=== PATIENT | female | born 1985 ===

== ENCOUNTER 2016-07-14 09:24 | Emergency (ER) | payer MEDICAID ==
[2016-07-14] MEDS ORDERED: Amoxicillin-Clav 875-125 mg Tab PO STA (09:53)
--- NOTE | 2016-07-14 09:55 | C.PDOC ---
History Of Present Illness 31 yr old female presents to the ER with complaints of nasal congestion and frontal headache, intermittently for the past 2 days. Patient also reports of sore throat and a dry cough. Patient denies fever, chills, vision changes, chest pain, SOB, nausea, vomiting,abdominal pain, diarrhea, weakness or numbness. Time Seen by Provider: 07/14/16 09:46 Chief Complaint (Nursing): Cough, Cold, Congestion History Per: Patient History/Exam Limitations: no limitations Onset/Duration Of Symptoms: Intermittent Episodes (2 days) Past Medical History Reviewed: Historical Data, Nursing Documentation, Vital Signs Vital Signs: Last Vital Signs Temp 98.5 F 07/14/16 11:15 Pulse 87 07/14/16 11:15 Resp 20 07/14/16 11:15 BP 100/69 07/14/16 11:15 Pulse Ox 98 07/14/16 11:15 Family History: States: No Known Family Hx - Social History Hx Tobacco Use: Yes (2 cigarettes per day) Hx Alcohol Use: No Hx Substance Use: No - Immunization History Hx Tetanus Toxoid Vaccination: No Hx Influenza Vaccination: No Hx Pneumococcal Vaccination: No Review Of Systems Except As Marked, All Systems Reviewed And Found Negative. Constitutional: Negative for: Fever, Chills Eyes: Negative for: Vision Change ENT: Positive for: Nose Congestion, Throat Pain (Sore throat ) Cardiovascular: Negative for: Chest Pain Respiratory: Positive for: Cough (Dry). Negative for: Shortness of Breath Gastrointestinal: Negative for: Nausea, Vomiting, Abdominal Pain, Diarrhea Neurological: Positive for: Headache (Frontal ). Negative for: Weakness, Numbness Physical Exam - Physical Exam Appears: Well, Non-toxic, No Acute Distress Skin: Normal Color, Warm, Dry, No Rash Eye(s): bilateral: Normal Inspection Ear(s): Bilateral: Normal Nose: Discharge (B/L nasal congestion with scant clear rhinorhea.), Other (mild tenderness overlying maxillar sinuses B/L. No edema, no erythema.) Oral Mucosa: Moist, No Drooling Tongue: Normal Appearing Lips: Normal Appearing Throat: Erythema (B/L), No Exudate, No Drooling Neck: Normal, Normal ROM, Supple Cardiovascular: Rhythm Regular Respiratory: Normal Breath Sounds, No Stridor, No Wheezing Gastrointestinal/Abdominal: Normal Exam, Soft, No Tenderness Back: Normal Inspection, No CVA Tenderness Extremity: Normal ROM, No Pedal Edema, No Deformity Neurological/Psych: Oriented x3, Normal Speech ED Course And Treatment O2 Sat by Pulse Oximetry: 97 Pulse Ox Interpretation: Normal Progress Note: On re-evaluation, pt is afebrile, hemodynamiclay stable. Tolerate Po well in ED. Ambulatory in ED, not in any apparent distress. PulseOx 97% RA. ENT: (+) exam c/w acute pharyngitis. uvula midline, no eedma. neck: (-) meningeal sign,. Lungs: CTA B/L, BS equal B/L. Abd: benign, (-) guarding, (-) rebound, (-) RLQ tenderness. Back: (-) CVA tenderness. Neuorlogicaly intact. Pt advised on course of ds. ref. to F/u with PMD in 2-3 days for re-eval. return if any new changes. Medical Decision Making Medical Decision Making: PLAN: * POC * Amoxicillin PO * Benadryl PO * Prednisone PO Disposition Counseled Patient/Family Regarding: Diagnosis, Need For Followup, Rx Given - Disposition Referrals: [facility] [Outside] Disposition: HOME/ ROUTINE Disposition Time: 10:53 Condition: STABLE Prescriptions: Amoxicillin/Clavulanate [Augmentin 875 MG-125 MG] 1 tab PO BID #14 tab Loratadine [Claritin] 10 mg PO DAILY #20 tab Prednisone [Deltasone] 20 mg PO DAILY #3 tablet Benzonatate [Tessalon Perle] 100 mg PO TID #14 capsule Instructions: Pharyngitis (ED), Allergies (ED) Forms: School Excuse, Work Excuse - Clinical Impression Clinical Impression: Pharyngitis, Allergy - 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 - Scribe Statement The provider has reviewed the documentation as recorded by the Scribe Ghislaine Hazel All medical record entries made by the Scribe were at my direction and personally dictated by me. I have reviewed the chart and agree that the record accurately reflects my personal performance of the history, physical exam, medical decision making, and the department course for this patient. I have also personally directed, reviewed, and agree with the discharge instructions and disposition.
[2016-07-14] MEDS ORDERED: Amoxicillin-Clav 875-125 mg Tab PO ONE (10:06)
[2016-07-14 11:22] VITALS: BP 100/69; PULSE 87; RESP 20; TEMP 98.5
[2016-07-14 13:26] VITALS: O2SAT 97
== END 2016-07-14 11:20 | disposition home or self-care (01) ==
LOC: C.ER 09:24
DX: J02.9 Acute pharyngitis, unspecified (principal); J30.89 Other allergic rhinitis; Z72.0 Tobacco use

== ENCOUNTER 2016-07-25 11:20 | Emergency (ER) | payer MEDICAID ==
--- NOTE | 2016-07-25 13:00 | C.PDOC ---
History Of Present Illness 31 yr old female presents to the ER for evaluation of a non productive cough and sore throat for 1 day. Patient reports of sick contact with mom who has similar symptoms. Patient states she had some prescription cough tablets but doesn't remember the name. Patient states she took the tablet today in the morning on a empty stomach and vomited "7 times". Patient also reports of subjective fever yesterday but none today. Patient denies chest pain, SOB, nausea, abdominal pain, diarrhea, constipation, headache, weakness or numbness. Time Seen by Provider: 07/25/16 11:58 Chief Complaint (Nursing): GI Problem History Per: Patient History/Exam Limitations: None Onset/Duration Of Symptoms: Days (1) Current Symptoms Are (Timing): Still Present Past Medical History Reviewed: Historical Data, Nursing Documentation, Vital Signs Vital Signs: Last Vital Signs Temp 98.2 F 07/25/16 13:16 Pulse 62 07/25/16 13:16 Resp 18 07/25/16 13:16 BP 100/67 07/25/16 13:16 Pulse Ox 96 07/25/16 14:16 Family History: States: No Known Family Hx - Social History Hx Tobacco Use: Yes (2 cigarettes per day) Hx Alcohol Use: No Hx Substance Use: No - Immunization History Hx Tetanus Toxoid Vaccination: No Hx Influenza Vaccination: No Hx Pneumococcal Vaccination: No Review Of Systems Except As Marked, All Systems Reviewed And Found Negative. Constitutional: Positive for: Fever (Subjective but non today ) Cardiovascular: Negative for: Chest Pain Respiratory: Negative for: Shortness of Breath Gastrointestinal: Positive for: Vomiting. Negative for: Nausea, Abdominal Pain , Diarrhea, Constipation Neurological: Negative for: Weakness, Numbness, Headache Physical Exam - Physical Exam Appears: Well, Non-toxic, No Acute Distress Skin: Warm, Dry, Rash (Mild rash to the face. Scattered erythematous papules. ) Head: Atraumatic, Normacephalic Eye(s): bilateral: Normal Inspection, PERRL, EOMI Oral Mucosa: Moist Neck: Normal, Normal ROM, Supple Chest: Symmetrical, No Tenderness Cardiovascular: Rhythm Regular, No Murmur Respiratory: Normal Breath Sounds, No Rales, No Rhonchi, No Stridor, No Wheezing Gastrointestinal/Abdominal: Normal Exam, Bowel Sounds, Soft, No Tenderness Back: Normal Inspection, No CVA Tenderness Extremity: Normal ROM, No Swelling Neurological/Psych: Oriented x3, Normal Speech, Normal Cognition ED Course And Treatment O2 Sat by Pulse Oximetry: 96 Pulse Ox Interpretation: Normal Progress Note: Patient was treated with Zofran PO for vomiting. On reevalution, patient appeares comfortable, denies nausea. Patient is dischagred home and instructed to follow up with PMD in 1-2 days for further evaluation. Reassessment Condition: Improved Medical Decision Making Medical Decision Making: PLAN: * Zofran PO Disposition Counseled Patient/Family Regarding: Studies Performed, Diagnosis, Need For Followup, Rx Given - Disposition Referrals: Non [facility] Provider, [Non-Staff] - Disposition: HOME/ ROUTINE Disposition Time: 13:11 Condition: STABLE Additional Instructions: FOLLOW UP WITH PMD IN 1-2 DAYS FOR RE-EVALUATION. GATORADE AND WATER HYDRATION. AVOID MILK/DAIRY AND GREASY PRODUCTS. IF SYMPTOMS GET WORSE OR ANY NEW CONCERNING SYMPTOMS DEVELOP RETURN TO ED. 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 - Scribe Statement The provider has reviewed the documentation as recorded by the Scribe Ghislaine Hazel All medical record entries made by the Scribe were at my direction and personally dictated by me. I have reviewed the chart and agree that the record accurately reflects my personal performance of the history, physical exam, medical decision making, and the department course for this patient. I have also personally directed, reviewed, and agree with the discharge instructions and disposition.
[2016-07-25 13:17] VITALS: BP 100/67; PULSE 62; RESP 18; TEMP 98.2
[2016-07-25 14:13] VITALS: O2SAT 96
== END 2016-07-25 13:18 | disposition home or self-care (01) ==
LOC: C.ER 11:20
DX: B34.9 Viral infection, unspecified (principal)

== ENCOUNTER 2016-07-28 11:11 | Emergency (ER) | payer MEDICAID ==
[2016-07-28 11:39] VITALS: BP 92/62; PULSE 60; RESP 20; TEMP 98.2; O2SAT 99
--- NOTE | 2016-07-28 12:52 | C.PDOC ---
History Of Present Illness 31 y/o female presents to ED with complaints of cough, cold, and congestion for 4 days. Patient was evaluated in this ER on 07/25/09 (3 days ago) for similar complaints. She reports throat and chest pain from persistent coughing. Patient notes that vomiting has since resolved. Denies fever, chills, nausea, abdominal pain, diarrhea, urinary symptoms, headache, or other complaints at this time. Time Seen by Provider: 07/28/16 12:25 Chief Complaint (Nursing): Cough, Cold, Congestion History Per: Patient History/Exam Limitations: no limitations Onset/Duration Of Symptoms: Days Current Symptoms Are (Timing): Still Present Sick Contacts (Context): None Associated Symptoms: Sore Throat, Cough, Nasal Congestion. denies: Fever, Sputum, Vomiting, Diarrhea Ear Symptoms: Bilateral: None Recent travel outside of the [place]: No Past Medical History Reviewed: Historical Data, Nursing Documentation, Vital Signs Vital Signs: Last Vital Signs Temp 98.2 F 07/28/16 11:36 Pulse 60 07/28/16 11:36 Resp 20 07/28/16 11:36 BP 92/62 L 07/28/16 11:36 Pulse Ox 99 07/28/16 12:53 - Medical History PMH: No Chronic Diseases Family History: States: Unknown Family Hx - Social History Hx Tobacco Use: Yes (2 cigarettes per day) Hx Alcohol Use: No Hx Substance Use: No - Immunization History Hx Tetanus Toxoid Vaccination: No Hx Influenza Vaccination: No Hx Pneumococcal Vaccination: No Review Of Systems Except As Marked, All Systems Reviewed And Found Negative. Constitutional: Negative for: Fever, Chills ENT: Positive for: Throat Pain Cardiovascular: Negative for: Chest Pain Respiratory: Positive for: Cough. Negative for: Shortness of Breath, Wheezing Gastrointestinal: Negative for: Nausea, Vomiting, Abdominal Pain Skin: Negative for: Rash Neurological: Negative for: Headache, Dizziness Physical Exam - Physical Exam Appears: Non-toxic, No Acute Distress Skin: Normal Color, Warm, Dry Head: Atraumatic, Normacephalic Eye(s): bilateral: Normal Inspection, PERRL, EOMI Ear(s): Bilateral: Normal Nose: Normal Oral Mucosa: Moist Throat: Normal, No Erythema, No Exudate, No Drooling Chest: Symmetrical Cardiovascular: Rhythm Regular, No Murmur Respiratory: Normal Breath Sounds, No Accessory Muscle Use, No Rales, No Rhonchi , No Wheezing, Other (actively coughing ) Gastrointestinal/Abdominal: Soft, No Tenderness Back: Normal Inspection Extremity: Normal ROM, Capillary Refill (< 2 sec. ) Neurological/Psych: Oriented x3, Normal Speech, Normal Cognition ED Course And Treatment O2 Sat by Pulse Oximetry: 99 (RA) Pulse Ox Interpretation: Normal Progress Note: Treated with Claritin, Motrin, and Prednisone. On reassessment, patient is resting comfortably, and is in no acute distress. Patient instructed to follow up with clinic/PMD within 1-2 days. Disposition - Disposition Referrals: [facility] at [facility] [Outside] Disposition: HOME/ ROUTINE Disposition Time: 13:19 Condition: GOOD Additional Instructions: Return if worsened. 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 - Scribe Statement The provider has reviewed the documentation as recorded by the Ethan Alicea Provider Scribe Attestation: All medical record entries made by the Tyleribkaycee were at my direction and personally dictated by me. I have reviewed the chart and agree that the record accurately reflects my personal performance of the history, physical exam, medical decision making, and the department course for this patient. I have also personally directed, reviewed, and agree with the discharge instructions and disposition.
== END 2016-07-28 13:32 | disposition home or self-care (01) ==
LOC: C.ER 11:11
DX: J40 Bronchitis, not specified as acute or chronic (principal)

== ENCOUNTER 2016-07-30 10:56 | Emergency (ER) | payer MEDICAID ==
[2016-07-30 11:13] VITALS: O2SAT 99
[2016-07-30] MEDS ORDERED: Sodium Chloride 0.9% 1,000 ML IV ONE (11:30)
--- NOTE | 2016-07-30 11:30 | C.PDOC ---
History Of Present Illness 31 yr old female with PMHx of Psych not compliant with medications, states she forgets, presents to the ER for evaluation of a headache for 1 day and vomiting 3x today. Prior records were reviewed which shows patient has been seen multiple times for flu like symptoms in past 1 month. Patient denies fever, chills, vision changes, chest pain, SOB, nausea, abdominal pain, diarrhea, weakness or numbness. Time Seen by Provider: 07/30/16 11:20 Chief Complaint (Nursing): Headache History Per: Patient History/Exam Limitations: no limitations Onset/Duration Of Symptoms: Days (1) Preceeding Symptoms: None Associated Symptoms: denies: Photophobia, Blurred Vision Recent travel outside of the [place]: No Past Medical History Reviewed: Historical Data, Nursing Documentation, Vital Signs Vital Signs: Last Vital Signs Temp 98.1 F 07/30/16 11:10 Pulse 74 07/30/16 11:10 Resp 18 07/30/16 11:10 BP 92/60 L 07/30/16 11:10 Pulse Ox 99 07/30/16 13:12 Family History: States: No Known Family Hx - Social History Hx Tobacco Use: Yes (2 cigarettes per day) Hx Alcohol Use: No Hx Substance Use: No - Immunization History Hx Tetanus Toxoid Vaccination: No Hx Influenza Vaccination: No Hx Pneumococcal Vaccination: No Review Of Systems Except As Marked, All Systems Reviewed And Found Negative. Constitutional: Negative for: Fever, Chills Eyes: Negative for: Vision Change Cardiovascular: Negative for: Chest Pain Respiratory: Negative for: Shortness of Breath Gastrointestinal: Positive for: Vomiting. Negative for: Nausea, Abdominal Pain , Diarrhea Neurological: Positive for: Headache. Negative for: Weakness, Numbness Physical Exam - Physical Exam Appears: Well, Non-toxic, No Acute Distress Skin: Warm, Dry, No Rash Head: Atraumatic, Normacephalic Eye(s): bilateral: Normal Inspection, PERRL, EOMI Oral Mucosa: Moist Throat: Normal, No Erythema, No Exudate, No Drooling Neck: Normal, Normal ROM, No Paracervical Tenderness, Supple Chest: Symmetrical, No Tenderness Cardiovascular: Rhythm Regular, No Murmur Respiratory: Normal Breath Sounds, No Rales, No Rhonchi, No Wheezing Gastrointestinal/Abdominal: Normal Exam, Soft, No Tenderness, No Guarding, No Rebound Extremity: Normal ROM, No Swelling Neurological/Psych: Oriented x3, Normal Speech, Normal Motor ED Course And Treatment O2 Sat by Pulse Oximetry: 99 Pulse Ox Interpretation: Normal Progress Note: Treated with IVF NSS and reglan Reassessment Condition: Improved Medical Decision Making Medical Decision Making: PLAN: * Reglan IV * Sodium Chloride IV Disposition Counseled Patient/Family Regarding: Diagnosis, Need For Followup, Rx Given - Disposition Referrals: [facility] [Outside] [facility] [Outside] Disposition: HOME/ ROUTINE Disposition Time: 13:15 Condition: IMPROVED Additional Instructions: follow up with PMD for further evaluation Prescriptions: Naproxen [Naprosyn] 1 tab PO BID PRN #25 tab PRN Reason: Pain Instructions: General Headache (ED) Forms: Work Excuse - POA Present On Arrival: None - Clinical Impression Clinical Impression: Headache - 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 - Scribe Statement The provider has reviewed the documentation as recorded by the Scribe Ghislaine Hazel All medical record entries made by the Scribe were at my direction and personally dictated by me. I have reviewed the chart and agree that the record accurately reflects my personal performance of the history, physical exam, medical decision making, and the department course for this patient. I have also personally directed, reviewed, and agree with the discharge instructions and disposition.
[2016-07-30 13:21] VITALS: BP 91/60; PULSE 65; RESP 17; TEMP 97.2
== END 2016-07-30 13:43 | disposition home or self-care (01) ==
LOC: C.ER 10:56
DX: R51 Headache (principal)
CPT/HCPCS: 96361; 96374; 99285; J2765; J7040

== ENCOUNTER 2016-11-13 13:54 | Emergency (ER) | payer MEDICAID ==
[2016-11-13 14:07] VITALS: BP 107/62; PULSE 78; RESP 16; TEMP 98.1; O2SAT 100
--- NOTE | 2016-11-13 14:42 | C.PDOC ---
History Of Present Illness 31 y/o female presents to ED requesting test. LMP 1 month ago. Pt denies any pain, vaginal bleeding, vomiting or any other complaints. REQUESTING PREG TEST. LMP 1 MO. NO PAIN. EXAM NEG Time Seen by Provider: 11/13/16 14:26 Chief Complaint (Nursing): Medical Clearance History Per: Patient History/Exam Limitations: no limitations Severity: None Recent travel outside of the [place]: No Past Medical History Reviewed: Historical Data, Nursing Documentation, Vital Signs Vital Signs: Last Vital Signs Temp 98.1 F 11/13/16 14:01 Pulse 78 11/13/16 14:01 Resp 16 11/13/16 14:01 BP 107/62 11/13/16 14:01 Pulse Ox 100 11/13/16 14:43 Family History: States: Unknown Family Hx - Social History Hx Tobacco Use: Yes (2 cigarettes per day) Hx Alcohol Use: No Hx Substance Use: No - Immunization History Hx Tetanus Toxoid Vaccination: No Hx Influenza Vaccination: No Hx Pneumococcal Vaccination: No Review Of Systems Constitutional: Negative for: Fever Gastrointestinal: Negative for: Vomiting, Abdominal Pain Genitourinary: Negative for: Vaginal Bleeding Physical Exam - Physical Exam Appears: Non-toxic, No Acute Distress Skin: Warm, Dry, No Rash Head: Atraumatic, Normacephalic Chest: Symmetrical Cardiovascular: Rhythm Regular Respiratory: Normal Breath Sounds, No Rales, No Rhonchi, No Wheezing Gastrointestinal/Abdominal: Normal Exam, Soft, No Tenderness Extremity: Bilateral: Atraumatic Neurological/Psych: Oriented x3, Normal Speech, Normal Cognition ED Course And Treatment O2 Sat by Pulse Oximetry: 100 (room air) Pulse Ox Interpretation: Normal Disposition Counseled Patient/Family Regarding: Diagnosis, Need For Followup - Disposition Referrals: [facility] [Outside] [facility] [Outside] Disposition: HOME/ ROUTINE Disposition Time: 14:43 Condition: GOOD Additional Instructions: YOUR TEST IS NEGATIVE. FOLLOW UP WITH OBGYN Forms: [facility] ([place]), General Discharge Instructions - Clinical Impression Clinical Impression: Medical assessment - Scribe Statement The provider has reviewed the documentation as recorded by the Tyleribkaycee He Provider Attestation: All medical record entries made by the Scribe were at my direction and personally dictated by me. I have reviewed the chart and agree that the record accurately reflects my personal performance of the history, physical exam, medical decision making, and the department course for this patient. I have also personally directed, reviewed, and agree with the discharge instructions and disposition.
== END 2016-11-13 14:48 | disposition home or self-care (01) ==
LOC: C.ER 13:54
DX: Z00.8 Encounter for other general examination (principal)

== ENCOUNTER 2017-01-01 15:21 | Emergency (ER) | payer MEDICAID ==
[2017-01-01 15:48] VITALS: RESP 18
[2017-01-01] MEDS ORDERED: Sodium Chloride 0.9% 1,000 ML IV ONE (17:36)
[2017-01-01] MEDS ORDERED: Iohexol 240 (50 ml) PO STA (17:55)
[2017-01-01] MEDS ORDERED: Iohexol 240 (50 ml) ONE (18:13)
[2017-01-01 18:48] LABS: RBC URINE 9 /hpf (0-3); URINE BACTERIA OCC (<OCC); URINE BILIRUBIN NEGATIVE (NEGATIVE); URINE COLOR Yellow (YELLOW); URINE GLUCOSE (UA) NORMAL (Normal); URINE KETONE NEGATIVE (NEGATIVE); URINE LEUKOCYTE ESTERASE 3+ Leu/uL (Negative); URINE PROTEIN 2+ mg/dL (NEGATIVE); URINE UROBILINOGEN NORMAL mg/dL (0.2-1.0); WBC URINE 30 /hpf (0-5)
[2017-01-01 18:50] LABS: CHLORIDE 103 mmol/L (98-107); SODIUM 137 mmol/L (132-148)
[2017-01-01 18:52] LABS: GFR AFRICAN-AMERICAN > 60
[2017-01-01 18:53] LABS: ALB/GLOB RATIO 1.5 (1.0-2.1); ALKALINE PHOSPHATASE 87 U/L (38-126); ALT/SGPT 19 U/L (9-52); AST/SGOT 34 U/L (14-36); BLOOD UREA NITROGEN 7 mg/dL (7-17); CALCIUM 9.3 mg/dl (8.6-10.4); CARBON DIOXIDE 23 mmol/L (22-30); GLUCOSE,RANDOM 85 mg/dL (65-105); POTASSIUM 4.8 mmol/L (3.6-5.2); TOTAL PROTEIN 8.3 g/dL (6.3-8.3)
[2017-01-01 18:56] LABS: URINE BLOOD TRACE (NEGATIVE)
[2017-01-01 19:19] LABS: BASO % 0.3 % (0.0-2.0); HEMATOCRIT 38.6 % (34.0-47.0); LYMPH # 0.8 K/uL (1.0-4.3); LYMPH % 5.4 % (20.0-40.0); MEAN CELL VOLUME 87.5 fL (81.0-99.0); MEAN CORPUSCULAR HEMOGLOBIN 29.1 pg (27.0-31.0); MEAN CORPUSCULAR HGB CONC 33.2 g/dL (33.0-37.0); MEAN PLATELET VOLUME 9.2 fL (7.2-11.7); MONO # 0.6 K/uL (0.0-0.8); PLATELET COUNT 195 K/uL (130-400); RED CELL DISTRIBUTION WIDTH 12.7 % (11.5-14.5); WHITE BLOOD COUNT 14.8 K/uL (4.8-10.8)
[2017-01-01] MEDS ORDERED: Iohexol 350mg/ml 100 ML ONE (19:41)
--- NOTE | 2017-01-01 20:45 | CT ---
EXAM: CT Abdomen and Pelvis With Intravenous Contrast EXAM DATE/TIME: Exam ordered 01/01/2017 7:06 PM CLINICAL HISTORY: 31 years old, female; Pain; Abdominal pain; Flank; Right lower quadrant (rlq); Additional info: Rlq pain TECHNIQUE: Axial computed tomography images of the abdomen and pelvis with intravenous contrast. All CT scans at this facility use one or more dose reduction techniques, viz.: automated exposure control; ma/kV adjustment per patient size (including targeted exams where dose is matched to indication; i.e. head); or iterative reconstruction technique. Coronal and sagittal reformatted images were created and reviewed. CONTRAST: 100 mL of omnipaque 350 administered intravenously. COMPARISON: No relevant prior studies available. FINDINGS: Lower thorax: No acute findings. ABDOMEN: Liver: Unremarkable. No mass. Gallbladder and bile ducts: Unremarkable. No calcified stones. No ductal dilation. Pancreas: Unremarkable. No mass. No ductal dilation. Spleen: Unremarkable. No splenomegaly. Adrenals: Unremarkable. No mass. Kidneys and ureters: A 5 mm low density lesion is noted in the lower pole of the right kidney No hydronephrosis. Stomach and bowel: Unremarkable. No obstruction. No mucosal thickening. Appendix: No findings to suggest acute appendicitis. PELVIS: Bladder: Unremarkable. No mass. Reproductive: Rim-enhancing follicles/cysts are seen in both ovaries. The largest is in the left measuring 1.5 cm.. ABDOMEN and PELVIS: Intraperitoneal space: Unremarkable. No free air. No significant fluid collection. Bones/joints: No acute fracture. No dislocation. Soft tissues: There is a small umbilical hernia containing fat. Vasculature: Unremarkable. No abdominal aortic aneurysm. Lymph nodes: Unremarkable. No enlarged lymph nodes. IMPRESSION: 1. No acute findings. 2. 5 mm low density lesion in the lower pole of right kidney. It's not fully characterized due to its small size. 3. Small umbilical hernia containing fat. 4. Bilateral rim-enhancing lesions within the ovaries suggests follicle/cyst formation. The uterus and ovaries are better delineated with ultrasound if it is clinically relevant
--- NOTE | 2017-01-01 21:02 | C.PDOC ---
Time Seen by Provider: 01/01/17 16:52 Chief Complaint (Nursing): Abdominal Pain History Per: Patient, Family Onset/Duration Of Symptoms: Hrs (since this morning) Current Symptoms Are (Timing): Still Present Severity: Moderate Location Of Pain/Discomfort: RLQ, Suprapubic Quality Of Discomfort: Unable To Describe, "Pain" Associated Symptoms: Nausea, Vomiting, Diarrhea Exacerbating Factors: Food Alleviating Factors: None Last Bowel Movement: Today Additional History Per: Prior Records Abnormal Vaginal Bleeding: No Past Medical History Reviewed: Historical Data, Nursing Documentation, Vital Signs Vital Signs: Last Vital Signs Temp 99.1 F 01/01/17 17:50 Pulse 71 01/01/17 20:22 Resp 18 01/01/17 20:22 BP 83/48 L 01/01/17 20:22 Pulse Ox 100 01/01/17 20:22 - Medical History PMH: No Chronic Diseases Surgical History: No Surg Hx Family History: States: Unknown Family Hx - Social History Hx Tobacco Use: Yes (2 cigarettes per day) Hx Alcohol Use: No Hx Substance Use: No - Immunization History Hx Tetanus Toxoid Vaccination: No Hx Influenza Vaccination: No Hx Pneumococcal Vaccination: No Review Of Systems Except As Marked, All Systems Reviewed And Found Negative. Constitutional: Negative for: Fever, Weakness Cardiovascular: Negative for: Chest Pain Respiratory: Negative for: Shortness of Breath Gastrointestinal: Positive for: Nausea, Vomiting, Abdominal Pain, Diarrhea. Negative for: Melena, Hematochezia, Hematemesis Genitourinary: Negative for: Dysuria, Vaginal Discharge Musculoskeletal: Negative for: Neck Pain, Back Pain Skin: Negative for: Rash Neurological: Negative for: Weakness, Numbness, Seizures, Altered Mental Status Physical Exam - Physical Exam Appears: Non-toxic, No Acute Distress Skin: Normal Color, Warm, Dry, No Rash Head: Atraumatic, Normacephalic Eye(s): bilateral: Normal Inspection, PERRL, EOMI Neck: Normal ROM, Supple Cardiovascular: Rhythm Regular Respiratory: Normal Breath Sounds, No Accessory Muscle Use Gastrointestinal/Abdominal: Soft, Tenderness (lower abd) Back: No CVA Tenderness Extremity: Normal ROM Neurological/Psych: Oriented x3, Normal Motor, Normal Sensation ED Course And Treatment - Laboratory Results Result Diagrams: 01/01/17 19:30 01/01/17 18:17 Lab Interpretation: Abnormal Interpretation Of Abnormal: Probable UTI. Urine POC: Negative O2 Sat by Pulse Oximetry: 100 Pulse Ox Interpretation: Normal - CT Scan/US CT abd/pelv. Other Rad Studies (CT/US): Read By Radiologist, Radiology Report Reviewed CT/US Interpretation: IMPRESSION: 1. No acute findings. . 2. 5 mm low density lesion in the lower pole of right kidney. It's not fully. characterized due to its small size. . 3. Small umbilical hernia containing fat. . 4. Bilateral rim-enhancing lesions within the ovaries suggests follicle /cyst. formation. The uterus and ovaries are better delineated with ultrasound if it. is clinically relevant Progress Note: Pt feels much better. No abdominal pain or tenderness. Tolerating PO. Reassessment Condition: Improved Progress - Interventions Interventions:: Observation, Intravenous fluid - Medications Administered Intravenous: Antiemetic, NSAID - Data Reviewed Data Reviewed: Lab, Diagnostic imaging, Old records - Patient Status Patient status: Completely improved - Continuity of Care Discussed patient case with:: Patient, Family-HIPPA compliant, ED Nurse - Patient Plan Patient Plan: Discharge, F/U with PCP Disposition Counseled Patient/Family Regarding: Studies Performed, Diagnosis, Need For Followup, Rx Given - Disposition Disposition: HOME/ ROUTINE Disposition Time: 21:06 Condition: IMPROVED Additional Instructions: Drink plenty of fluids. Follow up with your doctor for further evaluation and treatment. Return to the ER if you develop fever, not tolerating fluids, back pain, worsening of symptoms or if you have any other concerns. Prescriptions: Ciprofloxacin [Cipro] 1 tab PO BID #10 tab Metoclopramide [Reglan] 1 tab PO TID PRN #15 tab PRN Reason: Nausea/Vomiting Instructions: Urinary Tract Infection in Women (ED) Forms: [employer] (Norwegian) - Clinical Impression Clinical Impression: Abdominal pain, UTI (urinary tract infection), Nausea & vomiting
[2017-01-01 21:28] VITALS: BP 106/65; PULSE 86; TEMP 98.8; O2SAT 99
[2017-01-01 23:15] LABS: LARGE PLATELETS PRESENT; NEUTROPHIL 83 % (50-75); SMUDGE CELLS PRESENT; TOTAL CELLS COUNTED 100
== END 2017-01-01 21:27 | disposition home or self-care (01) ==
LOC: C.ER 15:21
DX: N39.0 Urinary tract infection, site not specified (principal); R10.31 Right lower quadrant pain; R11.2 Nausea with vomiting, unspecified
CPT/HCPCS: 74177; 80053; 81001; 83690; 84703; 85025; 96361; 96374; 96375; 99285; J1885; J2765; J7040; Q9966; Q9967

== ENCOUNTER 2017-03-17 09:44 | Emergency (ER) | payer MEDICAID ==
[2017-03-17 10:03] VITALS: RESP 18
[2017-03-17] MEDS ORDERED: Sodium Chloride 0.9% 1,000 ML IV ONE (11:25)
[2017-03-17 11:26] LABS: RBC URINE 2 /hpf (0-3); URINE BACTERIA FEW (<OCC); URINE BILIRUBIN NEGATIVE (NEGATIVE); URINE BLOOD NEGATIVE (NEGATIVE); URINE COLOR Yellow (YELLOW); URINE GLUCOSE (UA) NORMAL (Normal); URINE KETONE NEGATIVE (NEGATIVE); URINE LEUKOCYTE ESTERASE 3+ Leu/uL (Negative); URINE PROTEIN NEGATIVE (NEGATIVE); URINE UROBILINOGEN NORMAL mg/dL (0.2-1.0); WBC URINE 41 /hpf (0-5)
[2017-03-17] MEDS ORDERED: Lidocaine 5% Patch TD ONE (11:43)
[2017-03-17] MEDS ORDERED: Dexamethasone 4 mg/1 ml ONE (11:43)
--- NOTE | 2017-03-17 11:44 | C.PDOC ---
History Of Present Illness 31 y/o female presents to ED with c/o abdominal pain , associated with nausea and vomiting, for 2 days. Patient describes pain as cramping. Denies fever, chills, diarrhea, dysuria, vaginal bleeding. Patient notes LMP was 02/06/17. Patient also c/o bilateral breast pain. Denies redness or discharge. Time Seen by Provider: 03/17/17 10:11 Chief Complaint (Nursing): Abdominal Pain History Per: Patient History/Exam Limitations: no limitations Current Symptoms Are (Timing): Still Present Location Of Pain/Discomfort: Epigastric Radiation Of Pain To:: None Quality Of Discomfort: Cramping Associated Symptoms: Nausea, Vomiting. denies: Fever, Chills, Diarrhea Abnormal Vaginal Bleeding: No Past Medical History Reviewed: Historical Data, Nursing Documentation, Vital Signs Vital Signs: Last Vital Signs Temp 97.6 F 03/17/17 09:59 Pulse 84 03/17/17 09:59 Resp 18 03/17/17 09:59 BP 97/66 L 03/17/17 09:59 Pulse Ox 100 03/17/17 14:48 Family History: States: Unknown Family Hx - Social History Hx Tobacco Use: Yes (2 cigarettes per day) Hx Alcohol Use: No Hx Substance Use: No - Immunization History Hx Tetanus Toxoid Vaccination: No Hx Influenza Vaccination: No Hx Pneumococcal Vaccination: No Review Of Systems Except As Marked, All Systems Reviewed And Found Negative. Constitutional: Negative for: Fever, Chills Cardiovascular: Negative for: Chest Pain Respiratory: Negative for: Cough, Shortness of Breath Gastrointestinal: Positive for: Nausea, Vomiting, Abdominal Pain. Negative for : Diarrhea Genitourinary: Negative for: Dysuria, Vaginal Discharge, Vaginal Bleeding Skin: Negative for: Rash Neurological: Negative for: Dizziness Physical Exam - Physical Exam Appears: Non-toxic, No Acute Distress Skin: Normal Color, Warm, Dry Head: Atraumatic, Normacephalic Oral Mucosa: Moist Chest: Symmetrical Cardiovascular: Rhythm Regular Respiratory: Normal Breath Sounds, No Rales, No Rhonchi, No Wheezing Gastrointestinal/Abdominal: Soft, Tenderness (mild, epigastric ), No Guarding, No Rebound Back: Normal Inspection, No CVA Tenderness Extremity: Normal ROM, Capillary Refill (< 2 sec.) Neurological/Psych: Oriented x3, Normal Speech, Normal Cognition ED Course And Treatment - Laboratory Results Result Diagrams: 03/17/17 11:46 03/17/17 11:46 O2 Sat by Pulse Oximetry: 100 (RA) Pulse Ox Interpretation: Normal Medical Decision Making Medical Decision Making: Assessment: abdominal pain and Plan: Labs, transvaginal ultrasound. Pepcid, Zofran, IVFs. Progress: test positive. EKG impression: Sinus rhythm 70bpm normal intervals, normal axis, no ST/T wave abnormalities Dx: abdominal pain, , UTI On reevaluation, patient reports improvement of pain, and is feeling better. Advised follow up with OB-EARLY LEARNING TEACHER in 2 days. Disposition Counseled Patient/Family Regarding: Studies Performed, Diagnosis, Need For Followup, Rx Given - Disposition Referrals: Dong Lopez MD [Staff Provider] - Disposition: HOME/ ROUTINE Disposition Time: 14:45 Condition: GOOD Additional Instructions: follow up with your doctor in 2 days call to make an appointment take medications as prescribed return to hospital if symptoms worsens or progress Prescriptions: Nitrofurantoin Macrocrystals [Macrobid] 100 mg PO BID #14 cap Instructions: (ED), Abdominal Pain in (ED) Forms: [facility] (Ghanaian), General Discharge Instructions - POA Present On Arrival: None - Clinical Impression Clinical Impression: Abdominal pain, UTI (urinary tract infection), - Scribe Statement The provider has reviewed the documentation as recorded by the Scribe SM All medical record entries made by the Scribe were at my direction and personally dictated by me. I have reviewed the chart and agree that the record accurately reflects my personal performance of the history, physical exam, medical decision making, and the department course for this patient. I have also personally directed, reviewed, and agree with the discharge instructions and disposition.
[2017-03-17 11:54] LABS: BASO # 0.1 K/uL (0.0-0.2); BASO % 0.8 % (0.0-2.0); EOS % 0.8 % (0.0-4.0); HEMATOCRIT 38.3 % (34.0-47.0); LYMPH # 1.1 K/uL (1.0-4.3); LYMPH % 16.4 % (20.0-40.0); MEAN CELL VOLUME 87.6 fL (81.0-99.0); MEAN CORPUSCULAR HEMOGLOBIN 29.5 pg (27.0-31.0); MEAN CORPUSCULAR HGB CONC 33.6 g/dL (33.0-37.0); MEAN PLATELET VOLUME 9.1 fL (7.2-11.7); MONO # 0.4 K/uL (0.0-0.8); MONO % 6.2 % (0.0-10.0); RED CELL DISTRIBUTION WIDTH 13.4 % (11.5-14.5)
[2017-03-17 11:56] LABS: WHITE BLOOD COUNT 6.5 K/uL (4.8-10.8)
[2017-03-17] MEDS ORDERED: Sodium Chloride 0.9% 1,000 ML ONE (12:03)
[2017-03-17 12:07] LABS: ALB/GLOB RATIO 1.1 (1.0-2.1); ALKALINE PHOSPHATASE 65 U/L (38-126); ALT/SGPT 26 U/L (9-52); AST/SGOT 24 U/L (14-36); BILIRUBIN,TOTAL 0.6 mg/dL (0.2-1.3); BLOOD UREA NITROGEN 9 mg/dL (7-17); CALCIUM 8.1 mg/dl (8.6-10.4); CARBON DIOXIDE 22 mmol/L (22-30); CHLORIDE 104 mmol/L (98-107); GFR AFRICAN-AMERICAN > 60; GLUCOSE,RANDOM 81 mg/dL (65-105); POTASSIUM 3.8 mmol/L (3.6-5.2); SODIUM 134 mmol/L (132-148); TOTAL PROTEIN 7.2 g/dL (6.3-8.3)
--- NOTE | 2017-03-17 14:07 | US ---
PROCEDURE: OB Pelvic Ultrasound HISTORY: abdominal pain in COMPARISON: None available. FINDINGS: UTERUS: Gestational sac: Single intrauterine gestation. Sac measures 2.0 centimeter. Heart rate: 121 bpm. age (Ultrasound estimated): 6 weeks, 2 days Jocelynn-gestational hemorrhage: Small subchorionic hemorrhage measuring 1.6 x 0.7 x 1.1 centimeter. Date of delivery (Ultrasound estimated) : 11/08/2017 Uterus measures 10.3 x 5.3 x 6.5 cm. Anteverted. Normal in size and appearance. Fundal fibroid measuring 1.6 x 1.6 x 1.8 centimeter. CERVIX: Long and closed. No cervical abnormality seen. RIGHT OVARY: Measures 2.8 x 2.2 x 2.4 cm and contains a 1.5 x 1.1 x 1.5 centimeter corpus luteum. No mass lesion. Normal flow. LEFT OVARY: Measures 2.7 x 1.7 x 2.4 cm. No solid mass. Normal flow. FREE FLUID: None. OTHER FINDINGS: None. IMPRESSION: Single, viable intrauterine gestation with average ultrasound age of 6 weeks, 2 days. heart rate is 121 beats per minute. Small subchorionic hemorrhage measuring up to 1.6 centimeter.
[2017-03-17 15:23] VITALS: TEMP 98.1
[2017-03-17 16:09] VITALS: BP 103/69; PULSE 83; O2SAT 99
--- NOTE | 2017-03-20 19:31 | CARD ---
APPROVED REPORT EKG Measurement Heart [id number] DC [id number] <Conclusion> Sinus rhythm with short DC Otherwise normal ECG
== END 2017-03-17 16:15 | disposition home or self-care (01) ==
LOC: C.ER 09:44
DX: O23.41 Unspecified infection of urinary tract in pregnancy, first trimester (principal); R10.13 Epigastric pain; Z3A.01 Less than 8 weeks gestation of pregnancy
CPT/HCPCS: 76805; 76817; 80053; 81001; 83690; 84702; 84703; 85025; 86850; 86900; 96374; 96375; 99285; J2405; J7040

== ENCOUNTER 2017-08-09 20:36 | Emergency (ER) | payer MEDICAID ==
[2017-08-09 20:44] VITALS: BP 96/61; PULSE 107; RESP 20; TEMP 97.6; O2SAT 97
--- NOTE | 2017-08-09 21:19 | C.PDOC ---
History Of Present Illness 32 year old female presents to the ED for evaluation of sore throat and nasal congestion which began yesterday. Patient complains of pain on swallowing. Patient denies fever, chills, and cough. Time Seen by Provider: 08/09/17 20:47 Chief Complaint (Nursing): ENT Problem History Per: Patient History/Exam Limitations: None Onset/Duration Of Symptoms: Hrs Current Symptoms Are (Timing): Still Present Past Medical History Reviewed: Historical Data, Nursing Documentation, Vital Signs Vital Signs: Last Vital Signs Temp 97.6 F 08/09/17 20:41 Pulse 107 H 08/09/17 20:41 Resp 20 08/09/17 21:37 BP 96/61 L 08/09/17 20:41 Pulse Ox 97 08/09/17 21:49 - Medical History PMH: No Chronic Diseases Family History: States: Unknown Family Hx - Social History Hx Tobacco Use: Yes (2 cigarettes per day) Hx Alcohol Use: No Hx Substance Use: No - Immunization History Hx Tetanus Toxoid Vaccination: No Hx Influenza Vaccination: No Hx Pneumococcal Vaccination: No Review Of Systems Constitutional: Negative for: Fever, Chills ENT: Positive for: Nose Congestion, Throat Pain Respiratory: Negative for: Cough Physical Exam - Physical Exam Appears: Non-toxic, No Acute Distress Skin: Normal Color, Warm, Dry Head: Atraumatic, Normacephalic Eye(s): bilateral: Normal Inspection Ear(s): Bilateral: Normal Nose: Discharge Oral Mucosa: Moist Throat: Exudate, Other (tonsillar erythema ) Neck: Normal ROM, Supple, No Other (swelling ) Lymphatic: Adenopathy (bilateral submandibular) Chest: Symmetrical, No Deformity, No Tenderness Cardiovascular: Rhythm Regular, No Murmur Respiratory: Normal Breath Sounds, No Rales, No Rhonchi, No Wheezing Extremity: Normal ROM, Capillary Refill (less than 2 seconds ) Neurological/Psych: Oriented x3, Normal Speech, Normal Cognition ED Course And Treatment O2 Sat by Pulse Oximetry: 97 (on RA) Pulse Ox Interpretation: Normal Progress Note: Motrin PO and Penicillin PO administered. On reassessment, patient is resting comfortably, showing no signs of distress and is stable for discharge. Patient is advised to follow up with PMD within. 1-2 days for further evaluation and/or return to the ED if symptoms persist or worsen. 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 - Scribe Statement The provider has reviewed the documentation as recorded by the Scribe (Nitza Dickens) All medical record entries made by the Scribe were at my direction and personally dictated by me. I have reviewed the chart and agree that the record accurately reflects my personal performance of the history, physical exam, medical decision making, and the department course for this patient. I have also personally directed, reviewed, and agree with the discharge instructions and disposition.
== END 2017-08-09 21:37 | disposition home or self-care (01) ==
LOC: C.ER 20:36
DX: J02.9 Acute pharyngitis, unspecified (principal)

== ENCOUNTER 2017-12-22 17:07 | Emergency (ER) | payer MEDICAID ==
[2017-12-22 17:31] VITALS: RESP 18
[2017-12-22 18:13] LABS: HCG,QUALITATIVE URINE NEGATIVE (NEGATIVE)
[2017-12-22 18:18] LABS: SQUAMOUS EPITHIAL 15 /hpf (0-5); URINE BACTERIA FEW (<OCC); URINE BILIRUBIN NEGATIVE (NEGATIVE); URINE BLOOD 3+ (NEGATIVE); URINE CLARITY Hazy (Clear); URINE COLOR Amber (YELLOW); URINE GLUCOSE (UA) NORMAL (Normal); URINE LEUKOCYTE ESTERASE 2+ Leu/uL (Negative); URINE PROTEIN 1+ mg/dL (NEGATIVE); URINE UROBILINOGEN NORMAL mg/dL (0.2-1.0)
--- NOTE | 2017-12-22 18:48 | C.PDOC ---
History Of Present Illness 32yo female, comes to ER for evaluation of abdominal pain x 5 days. She reports intermittent vaginal bleeding as well which has been continuous but markedly improved in quantity since her LMP 3 weeks ago. Pt notes only spotting once a day now, one drop. Patient otherwise denies any fever, chills, nausea, vomiting , diarrhea, dysuria, hematuria, black or bloody stools. She denies any chances of as well. No other complaints. Time Seen by Provider: 12/22/17 18:47 Chief Complaint (Nursing): Abdominal Pain History Per: Patient History/Exam Limitations: no limitations Onset/Duration Of Symptoms: Days, Persistent Current Symptoms Are (Timing): Still Present Associated Symptoms: denies: Fever, Chills, Nausea, Vomiting, Diarrhea, Back Pain, Chest Pain, Constipation, Urinary Symptoms Past Medical History Reviewed: Historical Data, Nursing Documentation, Vital Signs Vital Signs: Last Vital Signs Temp 97.1 F L 12/22/17 21:24 Pulse 54 L 12/22/17 21:24 Resp 18 12/22/17 21:24 BP 101/62 12/22/17 21:24 Pulse Ox 99 12/22/17 21:24 - Medical History PMH: No Chronic Diseases Surgical History: No Surg Hx Family History: States: No Known Family Hx - Social History Hx Tobacco Use: Yes (2 cigarettes per day) Hx Alcohol Use: No Hx Substance Use: No - Immunization History Hx Tetanus Toxoid Vaccination: No Hx Influenza Vaccination: No Hx Pneumococcal Vaccination: No Review Of Systems Except As Marked, All Systems Reviewed And Found Negative. Constitutional: Negative for: Fever, Chills Cardiovascular: Negative for: Chest Pain Respiratory: Negative for: Shortness of Breath Gastrointestinal: Positive for: Abdominal Pain. Negative for: Nausea, Vomiting , Diarrhea, Melena, Hematochezia Genitourinary: Positive for: Vaginal Bleeding. Negative for: Dysuria, Frequency , Hematuria, Vaginal Discharge Physical Exam - Physical Exam Appears: Non-toxic, No Acute Distress Skin: Normal Color, Warm Head: Atraumatic, Normacephalic Eye(s): bilateral: Normal Inspection Neck: Normal, Supple Chest: Symmetrical Cardiovascular: Rhythm Regular Respiratory: Normal Breath Sounds Gastrointestinal/Abdominal: Soft, Tenderness (epigastric), No Mass, No Guarding , No Rebound Back: Normal Inspection, No CVA Tenderness Extremity: Normal ROM, No Pedal Edema Neurological/Psych: Oriented x3 ED Course And Treatment - Laboratory Results Result Diagrams: 12/22/17 19:37 12/22/17 19:37 O2 Sat by Pulse Oximetry: 97 (RA) Pulse Ox Interpretation: Normal - CT Scan/US US Pelvis/Transvag Other Rad Studies (CT/US): Read By Radiologist, Radiology Report Reviewed CT/US Interpretation: FINDINGS: Uterus/cervix: The uterus measures 9.9 x 4.3 x 5.3 cm. Endometrial thickness is 4 mm. There is a fundal fibroid in the uterus measuring 2 cm. Right ovary: Normal follicles. No mass. Normal blood flow. Left ovary: There is a left ovarian cyst measuring 4 cm. Normal blood flow. Free fluid: No free fluid. IMPRESSION: No acute findings. Medical Decision Making Medical Decision Makin yr old female p/w suprapubic abdominal pain and vaginal bleeding x3 weeks: spotting. On exam, well appearing, comfortable. Spotting only on exam. Given pain will seek US and UA. No RUQ pain, No RLQ pain, No rebound or peritoneal signs. No CVAT. No hx of STDs, no abnl vaginal discharge, uses condoms consistently. Will seek labs and imaging. 2108 labs and imaging reviewed 4cm cyst: pain is non-intermittent, good flow UA: UTI lactic unremarkable. Tolerating clears before visit, continues to do so, pain improved, pt remains comfortable with improved abdominal exam: now non-tender. Pt notes she will defer Pelvic exam due to previous Ultrasound done here. I endorsed to pt importance of pelvic exam to see cervix as well to check for CMT, pt notes these risks of not doing a pelvic and states that she is ok with the TVUS, and does not need a pelvic. Will rx uti and have pt followup outpt. Disposition - Disposition Referrals: [facility] [Outside] Cesia Mota MD [Staff Provider] - Disposition: HOME/ ROUTINE Disposition Time: 20:12 Condition: GOOD Additional Instructions: DIANN SAINI, thank you for letting us take care of you today. Your provider was Aiden Sarah and you were treated for STOMACH PAINS. The emergency medical care you received today was directed at your acute symptoms. If you were prescribed any medication, please fill it and take as directed. It may take several days for your symptoms to resolve. Return to the Emergency Department if your symptoms worsen, do not improve, or if you have any other problems. Please contact your doctor or call one of the physicians/clinics you have been referred to that are listed on the Patient Visit Information form that is included in your discharge packet. Bring any paperwork you were given at discharge with you along with any medications you are taking to your follow up visit. Our treatment cannot replace ongoing medical care by a primary care provider outside of the emergency department. Thank you for allowing the [facility] team to be part of your care today. If you had an X-Ray or CT scan: A Radiologist will review the ED reading if any change in treatment is needed we will contact you. If you had a blood, urine, or wound culture: It will take several days for the results, if any change in treatment is needed we will contact you. If you had an STI test: It will take 48 hours for the results. Please call after 1 week if you have not heard back. Prescriptions: Nitrofurantoin Macrocrystal [Nitrofurantoin] 100 mg PO BID 5 Days #10 capsule Instructions: Urinary Tract Infections in Adults, Ovarian Cysts Forms: [employer] (Tur[place] Islander), Work Excuse - Clinical Impression Clinical Impression: Ovarian cyst, Dysmenorrhea, UTI (urinary tract infection) - Scribe Statement The provider has reviewed the documentation as recorded by the Ethan Murdock Provider Attestation: All medical record entries made by the Ethan were at my direction and personally dictated by me. I have reviewed the chart and agree that the record accurately reflects my personal performance of the history, physical exam, medical decision making, and the department course for this patient. I have also personally directed, reviewed, and agree with the discharge instructions and disposition.
[2017-12-22] MEDS ORDERED: Sodium Chloride 0.9% 1,000 ML IV SCH (19:15)
[2017-12-22 19:38] LABS: VENOUS BLOOD GAS BASE EXCESS 1.3 mmol/L (0.0-2.0); VENOUS BLOOD GAS PCO2 47 mmHg (40-60); VENOUS BLOOD GAS PO2 21 mm/Hg (30-55); VENOUS BLOOD PH 7.37 (7.32-7.43)
[2017-12-22 19:43] LABS: BASO # 0.1 K/uL (0.0-0.2); EOS # 0.2 K/uL (0.0-0.7); EOS % 3.1 % (0.0-4.0); HEMOGLOBIN 12.9 g/dL (11.0-16.0); LYMPH # 1.3 K/uL (1.0-4.3); LYMPH % 24.2 % (20.0-40.0); MEAN CORPUSCULAR HGB CONC 34.1 g/dL (33.0-37.0); MONO # 0.4 K/uL (0.0-0.8); MONO % 7.4 % (0.0-10.0); NEUT # 3.3 K/uL (1.8-7.0); NEUT % 64.3 % (50.0-75.0); NRBC % 0.1 % (0.0-2.0); RBC 4.3 Mil/uL (3.80-5.20); RED CELL DISTRIBUTION WIDTH 13.4 % (11.5-14.5); WHITE BLOOD COUNT 5.2 K/uL (4.8-10.8)
[2017-12-22 19:55] LABS: ALB/GLOB RATIO 1.7 (1.0-2.1); ALBUMIN 3.9 g/dL (3.5-5.0); ALT/SGPT 21 U/L (9-52); AST/SGOT 14 U/L (14-36); BLOOD UREA NITROGEN 11 mg/dL (7-17); CALCIUM 8.5 mg/dl (8.6-10.4); GFR NON-AFRICAN AMERICAN > 60; LIPASE 182 U/L (23-300)
[2017-12-22 21:24] VITALS: BP 101/62; PULSE 54; TEMP 97.1
[2017-12-22 21:27] VITALS: O2SAT 97
--- NOTE | 2017-12-23 09:32 | US ---
Date of service: 12/22/2017 HISTORY: suprapubic pain COMPARISON: None available. TECHNIQUE: Trans abdominal and transvaginal pelvic ultrasound was performed. FINDINGS: UTERUS: Measures 9.9 x 4.3 x 5.3 cm. Anteverted and normal in sinus. There is a 1.9 x 1.7 x 2.1 cm intramural fundal fibroid. Endometrium measures 4.0 mm in diameter. Unremarkable. CERVIX: No cervical abnormality identified. RIGHT OVARY: Measures 2.9 x 1.7 x 2.4 cm. No solid mass. Normal flow. LEFT OVARY: Measures 5.0 x 3.5 x 4.7 cm. No solid mass. Normal flow. There is a 3.9 x 2.5 x 3.9 cm septated cyst. FREE FLUID: No significant free fluid noted. OTHER FINDINGS: None. IMPRESSION: 1.9 x 1.7 x 2.1 cm intramural fundal fibroid. 3.9 cm septated cyst in the left ovary. Follow-up ultrasound in 3-6 month interval is recommended to assess stability/resolution of this cyst. A preliminary report was provided by [employer].
== END 2017-12-22 21:32 | disposition home or self-care (01) ==
LOC: C.ER 17:07
DX: N39.0 Urinary tract infection, site not specified (principal); N94.6 Dysmenorrhea, unspecified; N83.202 Unspecified ovarian cyst, left side; F17.210 Nicotine dependence, cigarettes, uncomplicated
CPT/HCPCS: 76830; 76856; 80053; 81001; 82803; 83690; 84703; 85025; 87086; 87181; 99285; J7030

== ENCOUNTER 2018-07-11 18:25 | Emergency (ER) | payer MEDICAID ==
[2018-07-11 18:39] VITALS: BP 102/63; PULSE 90; RESP 20; TEMP 98.6; O2SAT 99
--- NOTE | 2018-07-11 19:01 | C.PDOC ---
History Of Present Illness 33 y/o female comes in complaining of dental pain for the past 2 months. States that she has had a cavity in the left upper jaw for 2 months now and has not seeked dental evaluation due to busy schedule. Patient notes that the pain has worsened and rates it 8/10. Denies any fever, chills, headache, dizziness, SOB, chest pain, nausea, vomiting, or abdominal pain. Chief Complaint (Nursing): Dental Pain History Per: Patient History/Exam Limitations: no limitations Onset/Duration Of Symptoms: Days Current Symptoms Are (Timing): Still Present Past Medical History Reviewed: Historical Data, Nursing Documentation, Vital Signs Vital Signs: Last Vital Signs Temp 98.6 F 07/11/18 18:33 Pulse 90 07/11/18 18:33 Resp 20 07/11/18 18:33 BP 102/63 07/11/18 18:33 Pulse Ox 99 07/11/18 18:33 - Medical History PMH: No Chronic Diseases Family History: States: No Known Family Hx - Social History Hx Tobacco Use: Yes (2 cigarettes per day) Hx Alcohol Use: No Hx Substance Use: No - Immunization History Hx Tetanus Toxoid Vaccination: No Hx Influenza Vaccination: No Hx Pneumococcal Vaccination: No Review Of Systems Constitutional: Negative for: Fever, Chills ENT: Positive for: Other (Dental pain) Cardiovascular: Negative for: Chest Pain Respiratory: Negative for: Shortness of Breath Gastrointestinal: Negative for: Nausea, Vomiting, Abdominal Pain Neurological: Negative for: Headache, Dizziness Physical Exam - Physical Exam Appears: Non-toxic, No Acute Distress Skin: Warm, Dry Head: Atraumatic, Normacephalic Eye(s): bilateral: Normal Inspection Oral Mucosa: Moist Teeth: Caries (black binu noted on #16), Tender To Palpation, Other (no erythema of the surrounding gingiva) Throat: Normal, No Erythema Cardiovascular: Rhythm Regular Respiratory: Normal Breath Sounds Extremity: Bilateral: Atraumatic, Normal ROM Neurological/Psych: Oriented x3, Normal Speech ED Course And Treatment O2 Sat by Pulse Oximetry: 99 (RA) Pulse Ox Interpretation: Normal Medical Decision Making Medical Decision Making: Plan: --Cleocin 300 mg PO --Tylenol PO Disposition Counseled Patient/Family Regarding: Diagnosis, Need For Followup, Rx Given - Disposition Referrals: Daquan Manjarrez DDS [Staff Provider] - Razia Deleon DMD [Staff Provider] - Omar Rdz DDS [Medical Doctor] - Disposition: HOME/ ROUTINE Disposition Time: 19:15 Condition: STABLE Additional Instructions: Continue Clindamycin every 6 hours for 10 days Continue Tylenol as needed for pain use over the counter Orajel as needed for pain Follow up with Dentist in 1-2 days Return to ED if symptoms worsen Prescriptions: Acetaminophen [Tylenol] 325 mg PO Q6 PRN #30 capsule PRN Reason: Pain, Moderate (4-7) Clindamycin [Cleocin] 300 mg PO Q6 #40 cap Instructions: Tooth Decay, Adult (DC), Dental Pain (DC) Forms: [employer] (Paraguayan) - Clinical Impression Clinical Impression: Dental caries - PA / [employer]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 - Scribe Statement The provider has reviewed the documentation as recorded by the Scribe Dipika Mccabe All medical record entries made by the Scribe were at my direction and personally dictated by me. I have reviewed the chart and agree that the record accurately reflects my personal performance of the history, physical exam, medical decision making, and the department course for this patient. I have also personally directed, reviewed, and agree with the discharge instructions and disposition.
--- NOTE | 2018-07-11 19:07 | C.PDOC ---
Chief Complaint (Nursing): Dental Pain Past Medical History Vital Signs: Last Vital Signs Temp 98.6 F 07/11/18 18:33 Pulse 90 07/11/18 18:33 Resp 20 07/11/18 18:33 BP 102/63 07/11/18 18:33 Pulse Ox 99 07/11/18 18:33 Family History: States: Unknown Family Hx - Social History Hx Tobacco Use: Yes (2 cigarettes per day) Hx Alcohol Use: No Hx Substance Use: No - Immunization History Hx Tetanus Toxoid Vaccination: No Hx Influenza Vaccination: No Hx Pneumococcal Vaccination: No ED Course And Treatment O2 Sat by Pulse Oximetry: 99 Disposition Counseled Patient/Family Regarding: Diagnosis, Need For Followup, Rx Given - Disposition Referrals: Omar Rdz DDS [Medical Doctor] - Razia Deleon DMD [Staff Provider] - Daquan Manjarrez DDS [Staff Provider] - Disposition: HOME/ ROUTINE Disposition Time: 19:08 Condition: STABLE Additional Instructions: Continue Clindamycin every 6 hours for 10 days Continue Tylenol as needed for pain use over the counter Orajel as needed for pain Follow up with Dentist in 1-2 days Return to ED if symptoms worsen Prescriptions: Acetaminophen [Tylenol] 325 mg PO Q6 PRN #30 capsule PRN Reason: Pain, Moderate (4-7) Clindamycin [Cleocin] 300 mg PO Q6 #40 cap Instructions: Tooth Decay, Adult (DC), Dental Pain (DC) - Clinical Impression Clinical Impression: Dental caries
== END 2018-07-11 19:29 | disposition home or self-care (01) ==
LOC: C.ER 18:25
DX: K02.9 Dental caries, unspecified (principal)

== ENCOUNTER 2018-09-03 23:15 | Emergency (ER) | payer MEDICAID ==
[2018-09-03 23:24] VITALS: BP 115/76; PULSE 88; RESP 20; TEMP 98.9; O2SAT 98
[2018-09-03 23:58] LABS: SQUAMOUS EPITHIAL 23 /hpf (0-5); URINE BACTERIA MANY (<OCC); URINE BILIRUBIN NEGATIVE (NEGATIVE); URINE BLOOD 1+ (NEGATIVE); URINE CLARITY Hazy (Clear); URINE COLOR Amber (YELLOW); URINE GLUCOSE (UA) NORMAL (Normal); URINE LEUKOCYTE ESTERASE 3+ Leu/uL (Negative); URINE PROTEIN 1+ mg/dL (NEGATIVE)
[2018-09-04] MEDS ORDERED: cefTRIAXone (Rocephin) 250 mg Inj IM STA (00:18)
--- NOTE | 2018-09-04 00:25 | C.PDOC ---
History Of Present Illness 33 year old female states she had a new sexual partner a week ago and since then has developed yellowish vaginal discharge, vaginal irritation, and burning with urination. Time Seen by Provider: 09/03/18 23:36 Chief Complaint (Nursing): Female Genitourinary History Per: Patient History/Exam Limitations: no limitations Onset/Duration Of Symptoms: Days Current Symptoms Are (Timing): Still Present Associated Symptoms: Other (Vaginal discharge, Vaginal irritation, Burning with urination) Alleviating Factors: None Recent travel outside of the [place]: No Abnormal Vaginal Bleeding: No Past Medical History Reviewed: Historical Data, Nursing Documentation, Vital Signs Vital Signs: Last Vital Signs Temp 98.9 F 09/03/18 23:17 Pulse 88 09/03/18 23:17 Resp 20 09/03/18 23:17 BP 115/76 09/03/18 23:17 Pulse Ox 98 09/03/18 23:17 Primary Care Provider: FAMILY PROVIDER,NO Family History: States: Unknown Family Hx - Social History Hx Tobacco Use: Yes (2 cigarettes per day) Hx Alcohol Use: No Hx Substance Use: No - Immunization History Hx Tetanus Toxoid Vaccination: No Hx Influenza Vaccination: No Hx Pneumococcal Vaccination: No Review Of Systems Gastrointestinal: Negative for: Abdominal Pain Genitourinary: Positive for: Vaginal Discharge, Other (Burning with urination, Vaginal irritation) Musculoskeletal: Negative for: Back Pain Physical Exam - Physical Exam Appears: Non-toxic Skin: Normal Color, Warm Head: Atraumatic, Normacephalic Eye(s): bilateral: Normal Inspection Gastrointestinal/Abdominal: Soft, No Tenderness Back: No CVA Tenderness Pelvic: Vaginal Discharge (Yellow), Cervical Motion Tenderness Neurological/Psych: Oriented x3, Normal Speech ED Course And Treatment - Laboratory Results Lab Results: Urine Color Shivani (YELLOW) 09/03/18 23:49 Urine Clarity Hazy (Clear) 09/03/18 23:49 Urine pH 5.0 (5.0-8.0) 09/03/18 23:49 Ur Specific [place] 1.026 (1.003-1.030) 09/03/18 23:49 Urine Protein 1+ mg/dL (NEGATIVE) H 09/03/18 23:49 Urine Glucose (UA) Normal mg/dL (Normal) 09/03/18 23:49 Urine Ketones Negative mg/dL (NEGATIVE) 09/03/18 23:49 Urine Blood 1+ (NEGATIVE) H 09/03/18 23:49 Urine Nitrate Negative (NEGATIVE) 09/03/18 23:49 Urine Bilirubin Negative (NEGATIVE) 09/03/18 23:49 Urine Urobilinogen 2.0 mg/dL (0.2-1.0) H 09/03/18 23:49 Ur Leukocyte Esterase 3+ Chun/uL (Negative) H 09/03/18 23:49 Urine WBC (Auto) 218 /hpf (0-5) H 09/03/18 23:49 Urine RBC (Auto) 189 /hpf (0-3) H 09/03/18 23:49 Ur Squamous Epith Cells 23 /hpf (0-5) H 09/03/18 23:49 Urine Bacteria Many (<OCC) H 09/03/18 23:49 O2 Sat by Pulse Oximetry: 98 (Room air) Pulse Ox Interpretation: Normal Medical Decision Making Medical Decision Making: GC/Chlamydia cultures sent, patient will receive empiric treatment here in the ER, advised to abstain from sex until antibiotic treatment is complete and follow up with primary. Disposition Counseled Patient/Family Regarding: Studies Performed, Diagnosis, Need For Followup, Rx Given - Disposition Referrals: [facility] [Outside] Disposition: HOME/ ROUTINE Disposition Time: 00:24 Condition: STABLE Prescriptions: Doxycycline Monohydrate 100 mg PO BID 10 Days tablet Nitrofurantoin Macrocrystals [Macrobid] 100 mg PO BID 7 Days cap Instructions: Sexually-Transmitted Diseases (DC) Forms: [facility] (Filipino), General Discharge Instructions - Clinical Impression Clinical Impression: Vaginal discharge, Sexually transmitted disease - PA / GARDENING SUPERVISOR / Resident Statement MD/DO has reviewed & agrees with the documentation as recorded. - Scribe Statement The provider has reviewed the documentation as recorded by the Scribkaycee Yeboah All medical record entries made by the Ethan were at my direction and personally dictated by me. I have reviewed the chart and agree that the record accurately reflects my personal performance of the history, physical exam, medical decision making, and the department course for this patient. I have also personally directed, reviewed, and agree with the discharge instructions and disposition.
== END 2018-09-04 00:44 | disposition home or self-care (01) ==
LOC: C.ER 23:15
DX: A64 Unspecified sexually transmitted disease (principal); N89.8 Other specified noninflammatory disorders of vagina
CPT/HCPCS: 81001; 81025; 87491; 87591; 96372; 99284; J0696